=== PATIENT | female | born 1980 | race Two or more races ===

== ENCOUNTER 2016-08-18 16:04 | Emergency (ER) | payer SELFPAY ==
[~2016-08-18] VITALS: Ht 160 cm; Wt 63.4 kg
[2016-08-18] MEDS ORDERED: LORazepam 1MG TABLET PO ONE (17:00)
[2016-08-18] MEDS ORDERED: LORazepam 1MG TABLET ONE (17:03)
[2016-08-18 17:13] LABS: ASPARTATE AMINO TRANSFERASE 12 U/L (15-37); BLOOD UREA NITROGEN 12 mg/dL (7-18)
[2016-08-18 17:20] LABS: IS PT STATUS REG ER OR PRE ER? YES
[2016-08-18 17:42] VITALS: BP 119/85
== END 2016-08-18 18:10 | disposition home or self-care (01) ==
LOC: ED 18:00
DX: R07.89 Other chest pain (principal); F41.1 Generalized anxiety disorder; R06.00 Dyspnea, unspecified
CPT/HCPCS: 36415; 71020; 80053; 83880; 84484; 84703; 85025; 85379; 93005; 99285